=== PATIENT | female | born 2000 | race Caucasian/White ===

== ENCOUNTER → 2018-08-22 07:12 | Outpatient (CLI) | payer OTHER, SELFPAY ==
[2018-08-27 07:11] LABS: Hepatitis B Surf AB Imm QUANT 6 mIU/mL (> 9)
== END ==
PROVIDERS: PCP Family Medicine; Visit Provider Family Medicine
DX: Z01.84 Encounter for antibody response examination (principal)
CPT/HCPCS: 36415; 86317

== ENCOUNTER → 2018-09-30 08:17 | Outpatient (CLI) | payer OTHER, SELFPAY ==
[2018-10-02 15:10] LABS: Hepatitis B Surf AB Imm QUANT > 999 mIU/mL (> 9)
== END ==
PROVIDERS: PCP Family Medicine; Visit Provider Family Medicine
DX: R76.8 Other specified abnormal immunological findings in serum (principal)
CPT/HCPCS: 36415; 86317